=== PATIENT | male | born 1955 | race Caucasian/White ===

== ENCOUNTER → 2019-12-13 09:18 | Outpatient (CLI) | payer OTHER ==
--- NOTE | 2019-12-13 11:28 | NUR ---
PATIENT GIVEN 17 ML MULTIHANCE VIA IV IN RT AC STARTED AND INJECTED BY KAYLEY MUNOZ.
== END | disposition home or self-care (01) ==
LOC: D.MRI 09:18
DX: M54.9 Dorsalgia, unspecified (principal)